=== PATIENT | female | born 1990 | race Caucasian/White ===

== ENCOUNTER → 2017-09-06 | Outpatient (CLI) | payer OTHER ==
[2017-09-06 18:10] LABS: Beta HCG, Quantitative, Serum <1 mIU/mL (0-3); Prolactin 3.4 ng/mL
== END | disposition home or self-care (01) ==
LOC: LAB EV 17:04 → LAB SHORT 17:04
PROVIDERS: Physician Assistant Medical
DX: N92.6 Irregular menstruation, unspecified (principal); R53.83 Other fatigue
CPT/HCPCS: 84146; 84443; 84702